=== PATIENT | male | born 1995 | race African-American/Black ===

== ENCOUNTER 2022-05-13 15:45 | Emergency (ER) | payer SELFPAY ==
[~2022-05-13] VITALS: Ht 170.2 cm; Wt 131.5 kg
[2022-05-13 15:57] VITALS: BP 156/99
[2022-05-13] MEDS ORDERED: FLUORESCEIN SODIUM OPHTH 1 EA STRIP ONE (16:01)
[2022-05-13] MEDS ORDERED: CIPR5DRO EACHEYE (16:25)
== END 2022-05-13 16:45 | disposition home or self-care (01) ==
LOC: ER 16:39
DX: H10.9 Unspecified conjunctivitis (principal); Z60.2 Problems related to living alone